=== PATIENT | male | born 1965 | race Caucasian/White ===

== ENCOUNTER 2020-12-22 13:55 | Emergency (ER) | payer OTHER ==
[2020-12-22] MEDS ORDERED: ACETAMINOPHEN 325 MG TABLET PO STA (14:36)
--- NOTE | 2020-12-22 14:40 | ED Physician Documentation ---
History of Present Illness - Stated complaint Stated Complaint: WEAKNESS - Chief complaint Chief Complaint: General - History obtained from History obtained from: Patient - Additonal information Additional information: 55-year-old man with history of high blood pressure, diabetes, non-smoker, with family history of high Blood pressure presents with headache, nausea, weakness, and fogginess since starting a new blood pressure medicine, chlorthalidone last night. Patient has had 2 doses and is concerned that it is causing all of the symptoms. He also had midsternal chest tightness lasting a few seconds that resolved after burping. currently asymptomatic except for gen weakness and headache which is bitemporal, nonradiating, mild/moderate, aching, worse with pressing on the temples. denies fevers, high salt food intake, pain anywhere. Review of Systems Ten Systems: 10 systems reviewed and negative Constitutional: reports: Fatigue. denies: Fever, Chills Eyes: denies: Decreased vision Ears: denies: Tinnitus/ringing Cardiac: reports: Other (+chest tightness "bubbling"). denies: Chest pain / pressure Respiratory: denies: Dyspnea GI: reports: Nausea. denies: Abdominal Pain, Vomiting, Constipation, Diarrhea : denies: Dysuria Musculoskeletal: denies: Back pain PD PAST MEDICAL HISTORY - Past Medical History Past Medical History: Yes - Present Medications Home Medications: Ambulatory Orders Medication Instructions Recorded Confirmed Chlorthalidone 25 mg ORAL DAILY 12/22/20 12/22/20 Lisinopril [Zestril] 10 mg PO QDAC #30 tablet 12/22/20 metFORMIN [Glucophage] 1,000 mg PO DAILY 12/22/20 12/22/20 - Allergies Allergies/Adverse Reactions: Allergies Allergy/AdvReac Type Severity Reaction Status Date / Time No Known Drug Allergies Allergy Verified 12/22/20 13:59 - Social History Does the pt smoke?: No Smoking Status: Never smoker Does the pt drink ETOH?: No Does the pt have substance abuse?: No - Immunizations Immunizations are current?: Yes - POLST Patient has POLST: No PD ED PE NORMAL - Vitals Vital signs reviewed: Yes - General General: Alert and oriented X 3, No acute distress, Well developed/nourished - HEENT HEENT: Atraumatic, PERRL, EOMI - Neck Neck: Supple, no meningeal sign - Cardiac Cardiac: RRR - Respiratory Respiratory: No respiratory distress, Clear bilaterally - Abdomen Abdomen: Non tender, Non distended - Derm Derm: Normal color, Warm and dry - Extremities Extremities: No deformity, No edema - Neuro Neuro: Alert and oriented X 3 - Psych Psych: Normal mood, Normal affect Results - Vitals Vitals: Vital Signs - 24 hr 12/22/20 12/22/20 14:00 14:12 Temperature 36.6 C 36.6 C Heart Rate 79 79 Respiratory 16 16 Rate Blood Pressure 182/107 H 182/107 H O2 Saturation 99 99 Oxygen O2 Source Room air - EKG (time done) 0259 Rate: Rate (enter#) (69) Rhythm: NSR QRS: LVH Ischemia: Normal ST segments PD MEDICAL DECISION MAKING - ED course ED course: 55-year-old man presents with multiple complaints and concerns that his chlorthalidone is causing his symptoms. I advised him that there could be multiple causes for his symptoms including high blood pressure itself, but after much discussion we decided to switch him back to his lisinopril since he has had it in the past and prefers it. Offered to do blood work however patient does not feel it is necessary since he had lab work this past week. Education g maynro and strict return precautions given. Patient will follow up with his primary doctor for adjustment of his medications as needed. Departure - Departure Disposition: 01 Home, Self Care Clinical Impression: Headache, Hypertension Condition: Good Instructions: Inhibitors [place], Hypertension Control Prescriptions: Lisinopril [Zestril] 10 mg PO QDAC #30 tablet Comments: You are seen in the emergency department for evaluation of high blood pressure, nausea, headache, and weakness. Since you have concerns about your chlorthalidone, I am switching to lisinopril temporarily until you follow-up with your primary doctor. Follow the recommendations from here. Return to the emergency department if you develop any new or worsening symptoms or other concerns. Hope you feel better!
[2020-12-22 15:03] VITALS: BP 160/88
== END 2020-12-22 15:01 | disposition home or self-care (01) ==
LOC: ED 13:55
DX: I10 Essential (primary) hypertension (principal); R51.9 Headache, unspecified; R07.89 Other chest pain; E11.9 Type 2 diabetes mellitus without complications; Z79.84 Long term (current) use of oral hypoglycemic drugs
CPT/HCPCS: 93005; 99283; 99284; A9270